=== PATIENT | male | born 1955 | race Caucasian/White ===

== ENCOUNTER 2020-02-01 12:30 | Outpatient (RCR) | payer OTHER ==
[~2020-02-01 12:30] MED LIST: ASPIRIN E.C. 8181 MG PO; CALCIUM CARB W/1 TA1 PO; CLARITIN 1010 MG/TAB PO; COMBIVENT INH14.7 GM IH; COREG12.5 MG PO; CYANOCOBAL1000 MCG/2 IM; CYMBALTA 60MG60 MG PO; DIOVAN 40MG40 MG PO; GLUCOPHAGE850 MG/TAB PO; MS CONTIN 330 MG/TAB PO; MS CONTIN 660 MG/TAB PO; NASONEX SPRAY17 GM NS; NEURONTIN300 MG/CAP PO; PERCOCET 325 MG1 TA2 PO; ROBAXIN 75750 MG/TAB PO; TIAZAC240 MG PO; ZOCOR 20MG20 MG PO
== END 2020-05-01 | disposition home or self-care (01) ==
LOC: WSST
DX: R13.14 Dysphagia, pharyngoesophageal phase (principal)